=== PATIENT | female | born 1970 | race Caucasian/White ===

== ENCOUNTER 2017-11-28 06:46 | Emergency (ER) | payer OTHER ==
[~2017-11-28] VITALS: Ht 165.1 cm; Wt 136.1 kg
[2017-11-28] MEDS ORDERED: KEFLEX500 M1 PO (07:44)
[2017-11-28] MEDS ORDERED: NORCO 5-325 TA1 EACH PO (08:00)
[2017-11-28 08:10] VITALS: BP 122/70
== END 2017-11-28 08:11 | disposition home or self-care (01) ==
LOC: M.ERS 06:46
DX: S91.112A Laceration without foreign body of left great toe without damage to nail, initial encounter (principal); X58.XXXA Exposure to other specified factors, initial encounter; Y93.89 Activity, other specified; Y92.89 Other specified places as the place of occurrence of the external cause; Y99.8 Other external cause status

== ENCOUNTER 2018-12-10 18:54 | Emergency (ER) | payer OTHER ==
[~2018-12-10] VITALS: Ht 165.1 cm; Wt 136.1 kg
[~2018-12-10 18:54] MED LIST: KEFLEX500 M1 PO; NORCO 5-325 TA1 EACH PO
[2018-12-10] MEDS ORDERED: TRAMADOL 50 MG50 MG PO (19:45)
[2018-12-10 20:09] VITALS: BP 148/69
== END 2018-12-10 20:10 | disposition home or self-care (01) ==
LOC: M.ERS 18:54
DX: S90.31XA Contusion of right foot, initial encounter (principal); Z96.643 Presence of artificial hip joint, bilateral; Z88.4 Allergy status to anesthetic agent; Z98.890 Other specified postprocedural states; W22.8XXA Striking against or struck by other objects, initial encounter; Y93.89 Activity, other specified; Y92.89 Other specified places as the place of occurrence of the external cause; Y99.8 Other external cause status